=== PATIENT | female | born 1980 | race Caucasian/White ===

== ENCOUNTER 2018-05-21 05:18 | Emergency (ER) | payer SELFPAY ==
[~2018-05-21] VITALS: Ht 162.6 cm; Wt 65.8 kg
--- NOTE | 2018-05-21 05:22 | NUR ---
ED Nurse Note: Patient is not in waiting room, unable to triage at this time
--- NOTE | 2018-05-21 05:31 | NUR ---
ED Nurse Note: Patient is still not in waiting room.
[2018-05-21] MEDS ORDERED: SUBOXONE 4 MG-1 EACH SL (05:38)
--- NOTE | 2018-05-21 05:40 | NUR ---
ED Nurse Note: Patient walked into ED c/o lesions around her body, patient states that she sustained these lesions after using an old razor, denies any pain however asked staff "if the doctor can get prescriptions for suboxone" patient placed in a room, will wait for further orders. patient is alert and oriened x4, ambulatory with a steady gait, VSS
[2018-05-21 05:42] VITALS: BP 107/73
[2018-05-21] MEDS ORDERED: CEPHALEXIN500 MG ORAL (05:54)
[2018-05-21 06:00] VITALS: BP 120/75
[2018-05-21] MEDS ORDERED: Cephalexin 500mg cap ORAL ONE (06:00)
--- NOTE | 2018-05-21 06:00 | NUR ---
ER DISCHARGE NOTE: Patient is cleared to be discharged per ERMD, pt is aox4, on room air, with stable vital signs. pt was given dc and prescription instructions, pt was able to verbalize understanding, pt id band removed without complications. pt is able to ambulate with steady gait. pt took all belongings.
--- NOTE | 2018-05-21 06:02 | Emergency Room Report ---
History of Present Illness General Chief Complaint: Skin Rash/Abscess Source: Patient Present Illness HPI Patient presents with complaints of several skin lesions involving the lower extremity Denies any pain denies any discharge She thinks that she might have used a razor that was not fully clean Denies any fevers or chills denies any neck pain or photophobia Denies any itching Allergies: Coded Allergies: No Known Allergies (Unverified , 05/21/18) Patient History Past Medical History: see triage record Pertinent Family History: none Last Menstrual Period: 04/20/18 Now: No : 3 Para: 1 Reviewed Nursing Documentation: PMH: Agreed; PSxH: Agreed Nursing Documentation-PMH Past Medical History: No History, Except For Review of Systems All Other Systems: negative except mentioned in HPI Physical Exam Vital Signs Date Time Temp Pulse Resp B/P (MAP) Pulse Ox O2 Delivery O2 Flow Rate FiO2 05/21/18 05:32 98.6 95 18 107/73 99 Room Air Sp02 EP Interpretation: reviewed, normal General Appearance: well appearing, no apparent distress Head: normocephalic, atraumatic Eyes: bilateral eye PERRL, bilateral eye EOMI ENT: normal pharynx, no angioedema Neck: supple Respiratory: lungs clear, no retraction Cardiovascular #1: regular rate, rhythm Gastrointestinal: non tender, soft Musculoskeletal: normal inspection Neurologic: alert, oriented x3 Skin: other - Several areas involving the lower extremity, small scab formations with mild surrounding erythema, no obvious fluctuance no dermatomal spread Lymphatic: no adenopathy Medical Decision Making Diagnostic Impression: Primary Impression: Rash and other nonspecific skin eruption ER Course Patient appears to have several areas of what appeared to be likely folliculitis No obvious pustule No other dermatomal spread Patient initiated on oral antibiotics given the erythema around the edge of the skin lesions And is stable for close outpatient follow-up Last Vital Signs Date Time Temp Pulse Resp B/P (MAP) Pulse Ox O2 Delivery O2 Flow Rate FiO2 05/21/18 05:42 98.6 95 18 107/73 99 Room Air Status: improved Disposition: HOME, SELF-CARE Condition: Stable Scripts Cephalexin* (KEFLEX*) 500 Mg Capsule 500 MG ORAL EVERY 6 HOURS for 7 Days, CAP Prov: Shivani Cruz DO 05/21/18 Referrals: NOT CHOSEN IPA/,REFERRING (PCP) Jossy Lozano. [facility] - Peds ER - Patient Instructions: Rash, Folliculitis Additional Instructions: Patient is provided with the discharge instructions notified to follow up with primary doctor in the next 2-3 days otherwise return to the er with any worsening symptoms. Please note that this report is being documented using DRAGON technology. This can lead to erroneous entry secondary to incorrect interpretation by the dictating instrument. Shivani Cruz DO May 21, 2018 06:02
== END 2018-05-21 06:01 | disposition home or self-care (01) ==
LOC: EMR 05:43
DX: R21 Rash and other nonspecific skin eruption (principal)
CPT/HCPCS: 99282